=== PATIENT | male | born 1965 | race Caucasian/White ===

== ENCOUNTER 2016-12-29 13:57 | Outpatient (RCR) | payer OTHER ==
[~2016-12-29 13:57] MED LIST: AMOXICILLIN 8751 TAB PO; ASPIRIN 81M81 MG/TA2 PO; BENADRYL50 MG PO; CINNAMON500 MG PO; FARXIGA10 PO; FISH OIL 1000MG1 CAP PO; GLUCOPHAGE500 MG/TAB PO; JANUVIA50 MG PO; LIPITOR 40MG TA40 MG PO; MOBIC15 MG PO; MOTRIN 800800 MG/TAB PO; NEURONTIN300 MG/CAP PO; NORCO 325 MG-51 TAB PO; NORCO 325 MG-7.1 TAB PO; PRAVACHOL10 MG; PRINIVIL20 MG PO; ROBAXIN 75750 MG/TAB PO; ULTRAM 50MG TAB50 MG PO; VALIUM 5MG T5 MG/TAB PO; XANAX 0.5MG0.5 MG PO
== END 2017-03-22 14:42 ==
LOC: WSOH 13:57
DX: S61.216A Laceration without foreign body of right little finger without damage to nail, initial encounter (principal); Z77.9 Other contact with and (suspected) exposures hazardous to health; Y99.0 Civilian activity done for income or pay

== ENCOUNTER → 2019-07-14 | Outpatient (CLI) | payer BC ==
[2019-07-14 07:11] LABS: BASO % 0.4 % (0.0-2.0); EOS # 0.1 (0.0-0.7); EOS % 1.2 % (0-4.0); GRAN # 4.9 (1.4-6.5); GRAN % 66.9 % (42.2-75.2); HEMATOCRIT 43.9 % (42.0-52.0); HEMOGLOBIN 14.6 g/dl (13.5-18.0); LYMPH # 1.7 (1.2-3.4); LYMPH % 22.8 % (20.0-51.0); MEAN CELL VOLUME 88 fl (80.0-100.0); MEAN CORPUSCULAR HEMOGLOBIN 29 pg (27.0-31.0); MEAN CORPUSCULAR HGB CONC 33 g/dl (33.0-37.0); MEAN PLATELET VOLUME 9.3 fl (7.4-10.4); MONO # 0.6 (0.1-0.6); MONO % 8.2 % (1.7-9.3); PLATELET COUNT 140 K/mm3 (130-400); RED BLOOD COUNT 4.99 M/mm3 (4.20-5.60); REDCELL DISTRIBUTION WIDTH-CV 13.6 % (11.5-14.5)
[2019-07-14 07:17] LABS: ALBUMIN 4.1 gm/dL (3.5-5.0); BILIRUBIN,TOTAL 0.9 mg/dL (0.0-1.0); CALCIUM 8.8 mg/dL (8.4-10.2); CHOLESTEROL RISK RATIO 4.7; CREATININE, serum 0.99 (0.66-1.25); POTASSIUM 4.5 mmol/L (3.4-5.0); TOTAL PROTEIN 6.8 gm/dL (6.4-8.2)
== END ==
LOC: COL.LAB 06:36
PROVIDERS: Emergency Medicine
DX: Z12.5 Encounter for screening for malignant neoplasm of prostate (principal); E11.9 Type 2 diabetes mellitus without complications; I10 Essential (primary) hypertension

== ENCOUNTER → 2019-10-20 | Outpatient (CLI) | payer BC | LOC: COL.LAB 14:20 | DX: E11.9 Type 2 diabetes mellitus without complications (principal) ==

== ENCOUNTER → 2020-04-25 | Outpatient (CLI) | payer BC | LOC: COL.LAB 08:51 | DX: E11.9 Type 2 diabetes mellitus without complications (principal) ==

== ENCOUNTER → 2021-03-17 | Outpatient (CLI) | payer OTHER | LOC: COL.RAD 07:38 | DX: M48.07 Spinal stenosis, lumbosacral region (principal); M51.27 Other intervertebral disc displacement, lumbosacral region | CPT/HCPCS: A9585 ==

== ENCOUNTER → 2023-08-21 | Outpatient (CLI) | payer BC | LOC: MHCPAIN 14:32 | DX: M51.16 Intervertebral disc disorders with radiculopathy, lumbar region (principal); M50.30 Other cervical disc degeneration, unspecified cervical region; M47.812 Spondylosis without myelopathy or radiculopathy, cervical region; M54.81 Occipital neuralgia; R15.9 Full incontinence of feces | CPT/HCPCS: G0463 ==

== ENCOUNTER → 2023-10-15 | Outpatient (CLI) | payer BC ==
[~2023-10-15] MED LIST changes: +Iohexol 300 - 10 ML VIAL ONE; +Lidocaine PF 2% (20 MG/ML) 2 ML VIAL ONE
== END ==
LOC: MHCPAIN 11:32
DX: M54.16 Radiculopathy, lumbar region (principal)
CPT/HCPCS: J1100; Q9967

== ENCOUNTER → 2024-01-17 | Outpatient (CLI) | payer BC ==
[~2024-01-17] MED LIST changes: -Iohexol 300 - 10 ML VIAL ONE; -Lidocaine PF 2% (20 MG/ML) 2 ML VIAL ONE
== END ==
LOC: MHCPAIN 10:25
DX: M51.16 Intervertebral disc disorders with radiculopathy, lumbar region (principal); M50.30 Other cervical disc degeneration, unspecified cervical region; M47.812 Spondylosis without myelopathy or radiculopathy, cervical region; M54.81 Occipital neuralgia
CPT/HCPCS: G0463

== ENCOUNTER 2024-01-29 14:31 | Emergency (ER) | payer BC ==
[~2024-01-29] VITALS: Ht 180.3 cm; Wt 86.4 kg
[2024-01-29 14:53] VITALS: TEMP 98
[2024-01-29] MEDS ORDERED: NS 1,000 ML IV ONE (15:15)
[2024-01-29 15:42] LABS: BASO % 0.3 % (0.0-2.0); EOS # 0.1 K/mm3 (0.0-0.7); EOS % 0.9 % (0.0-4.0); GRAN # 8.2 K/mm3 (1.4-6.5); GRAN % 64.5 % (42.2-75.2); HEMOGLOBIN 14.5 g/dl (13.5-18.0); LYMPH # 3.6 K/mm3 (1.2-3.4); LYMPH % 28.2 % (20.0-51.0); MEAN CELL VOLUME 87 fl (80.0-100.0); MEAN CORPUSCULAR HEMOGLOBIN 29 pg (27-31); MEAN CORPUSCULAR HGB CONC 33 g/dl (33.0-37.0); MEAN PLATELET VOLUME 9.3 fl (7.4-10.4); MONO # 0.7 K/mm3 (0.1-0.6); MONO % 5.6 % (1.7-9.3); PLATELET COUNT 170 K/mm3 (130-400); RED BLOOD COUNT 5.08 M/mm3 (4.20-5.60); REDCELL DISTRIBUTION WIDTH-CV 14.7 % (11.5-14.5)
[2024-01-29 16:10] LABS: BILIRUBIN,TOTAL 0.5 mg/dL (0.2-1.2); CALCIUM 9.7 mg/dL (8.4-10.2); CREATININE, serum 1.02 mg/dL (0.72-1.25); POTASSIUM 3.7 mEq/L (3.5-4.5); TOTAL PROTEIN 7.1 g/dl (6.2-8.1)
[2024-01-29 17:03] VITALS: BP 130/85
[2024-01-29 17:16] LABS: COLLECTION METHOD CLEAN CATCH
[2024-01-29 17:21] LABS: URINE APPEARANCE CLEAR (CLEAR/HAZY); URINE BLOOD NEGATIVE (NEGATIVE); URINE COLOR YELLOW (YELLOW); URINE GLUCOSE 3+ (NEGATIVE); URINE KETONE NEGATIVE (NEGATIVE); URINE NITRATE NEGATIVE (NEGATIVE); URINE PROTEIN(semi-quant) NEGATIVE (NEGATIVE); URINE UROBILINOGEN 0.2 E.U/dL (0.2-1.0)
[2024-01-29 17:41] LABS: TRICYCLIC ANTIDEPRESS URINE NEGATIVE (NEGATIVE)
[2024-01-29 18:09] VITALS: PULSE 72
== END 2024-01-29 18:09 | disposition home or self-care (01) ==
LOC: COL.ER 14:31
PROVIDERS: Physician Assistant
DX: E11.65 Type 2 diabetes mellitus with hyperglycemia (principal); T44.6X5A Adverse effect of alpha-adrenoreceptor antagonists, initial encounter; F17.200 Nicotine dependence, unspecified, uncomplicated
CPT/HCPCS: J7030

== ENCOUNTER → 2024-04-15 | Outpatient (CLI) | payer BC | LOC: MHCPAIN 10:43 | DX: M51.16 Intervertebral disc disorders with radiculopathy, lumbar region (principal); M54.50 Low back pain, unspecified; M47.812 Spondylosis without myelopathy or radiculopathy, cervical region; M50.30 Other cervical disc degeneration, unspecified cervical region; M54.81 Occipital neuralgia; M79.2 Neuralgia and neuritis, unspecified | CPT/HCPCS: G0463 ==